=== PATIENT | male | born 1965 | race Caucasian/White ===

== ENCOUNTER 2017-11-22 11:28 | Inpatient (IN) | payer OTHER ==
[2017-11-22 14:57] LABS: INR 1.2 (0.9-1.2); PROTHROMBIN TIME 13.2 Seconds (9.8-13.1)
[2017-11-22 15:05] LABS: BASO % 0.4 % (0.0-2.0); EOS # 0.1 K/uL (0.0-0.7); HEMOGLOBIN 15.3 g/dL (12.0-18.0); LYMPH # 2.1 K/uL (1.0-4.3); LYMPH % 29.4 % (20.0-40.0); MEAN CELL VOLUME 91.5 fl (80.0-94.0); MEAN CORPUSCULAR HEMOGLOBIN 32.6 pg (27.0-31.0); MEAN CORPUSCULAR HGB CONC 35.7 g/dL (33.0-37.0); MEAN PLATELET VOLUME 9.7 fl (7.2-11.7); MONO # 0.5 K/uL (0.0-0.8); MONO % 6.9 % (0.0-10.0); NEUT # 4.4 K/uL (1.8-7.0); NEUT % 62.3 % (50.0-75.0); NRBC % 0.2 % (0.0-0.0); RBC 4.69 Mil/uL (4.40-5.90); RED CELL DISTRIBUTION WIDTH 14.7 % (11.5-14.5)
[2017-11-22 15:11] LABS: B-TYPE NATRIURETIC PEPTIDE 919 pg/ml (0-900)
[2017-11-22 15:12] LABS: BLOOD UREA NITROGEN 14 mg/dl (9-20); CALCIUM 9.4 mg/dL (8.4-10.2); GFR AFRICAN-AMERICAN > 60; GFR NON-AFRICAN AMERICAN > 60
--- NOTE | 2017-11-22 15:18 | ED PDOC ---
HPI: General Adult Time Seen by Provider: 11/22/17 13:29 Chief Complaint (Nursing): Abnormal Labs Chief Complaint (Provider): Abnormal Labs History Per: Patient History/Exam Limitations: no limitations Additional Complaint(s): 52 year old male with history of hypertension presents to the ED after he was called by his PCP earlier today telling him he has a low potassium level. Patient states he has no issues or pain at this time. He denies any nausea, vomiting, diarrhea, dizziness, syncope, chest pain, cramps, headache and fever. Patient has been compliant with blood pressure medication. He offers no other medical concerns. PCP: Darvin Mckay Past Medical History Reviewed: Historical Data, Nursing Documentation, Vital Signs Vital Signs: Last Vital Signs Temp 98.6 F 11/23/17 16:06 Pulse 123 H 11/23/17 20:08 Resp 16 11/23/17 16:06 BP 121/86 11/23/17 16:06 Pulse Ox 100 11/23/17 20:08 - Medical History PMH: HTN - Surgical History Surgical History: No Surg Hx - Family History Family History: States: Unknown Family Hx - Social History Current smoker - smoking cessation education provided: Yes (Fromangie) Alcohol: Social Drugs: Denies - Home Medications Home Medications: Ambulatory Orders Medication Instructions Recorded Telmisartan [Micardis] 80 mg PO DAILY 11/22/17 amLODIPine [Norvasc] 5 mg PO DAILY 11/22/17 - Allergies Allergies/Adverse Reactions: Allergies Allergy/AdvReac Type Severity Reaction Status Date / Time No Known Allergies Allergy Verified 11/22/17 12:10 Review of Systems ROS Statement: Except As Marked, All Systems Reviewed And Found Negative Constitutional: Negative for: Fever, Chills Cardiovascular: Negative for: Chest Pain, Palpitations Gastrointestinal: Negative for: Nausea, Vomiting, Diarrhea, Other (cramps) Neurological: Negative for: Headache, Other (syncope) Physical Exam - Reviewed Nursing Documentation Reviewed: Yes Vital Signs Reviewed: Yes - Physical Exam Appears: Positive for: Non-toxic, No Acute Distress Head Exam: Positive for: ATRAUMATIC, NORMOCEPHALIC Skin: Positive for: Normal Color, Warm, Dry Eye Exam: Positive for: Normal appearance ENT: Positive for: Normal ENT Inspection Neck: Positive for: Normal, Painless ROM, Supple Cardiovascular/Chest: Positive for: Tachycardia, Irregularly Irregular Respiratory: Positive for: Normal Breath Sounds. Negative for: Respiratory Distress Gastrointestinal/Abdominal: Positive for: Normal Exam. Negative for: Tenderness Extremity: Positive for: Normal ROM. Negative for: Deformity, Swelling Neurologic/Psych: Positive for: Alert, Oriented - Laboratory Results Result Diagrams: 11/23/17 05:10 11/23/17 14:47 - ECG ECG Rhythm: Positive for: Normal QRS, Sinus Tachycardia. Negative for: ST/T Changes Interpretation Of Abn EKG: Afib with RVR Rate: 123 O2 Sat by Pulse Oximetry: 100 (RA) Pulse Ox Interpretation: Normal - Progress Re-evaluation Time: 15:30 Condition: Re-examined, Improving,but remains with symptoms - Critical Care Total Time (In Min): 60 Medical Decision Making Medical Decision Making: Initial Impression: Hypokalemia, palpitations. Differential includes but not limited to AFib currently in ER, hypokalemia. Initial Plan: --EKG --BTN --BMP --TSH --Troponin --CBC --PTT --PT --NaCl 100 ml, DiltiaZem 100ml. 5 mg/hr IV --Cadizem 20 mg IVP -Echo cardiac -Lovenox SC reassess -Discussed case with Dr. Mckay with Dx A-fib with RVR and CHF of new onset, and hypokalemia. Request Dr. Sanchez for cardio with whom he spoke personally. Scribe Attestation: Documented by Angela Granados, acting as a scribe for Nando Duggan PA-C Provider Scribe Attestation: All medical record entries made by the Scribe were at my direction and personally dictated by me. I have reviewed the chart and agree that the record accurately reflects my personal performance of the history, physical exam, medical decision making, and the department course for this patient. I have also personally directed, reviewed, and agree with the discharge instructions and disposition. Disposition - Clinical Impression Clinical Impression: CHF (congestive heart failure), A-fib, Hypokalemia - Patient ED Disposition Is Patient to be Admitted: Yes Discussed With : Aramis Adams Doctor Will See Patient In The: ED Counseled Patient/Family Regarding: Studies Performed, Diagnosis - Disposition Disposition Time: 15:40 Condition: FAIR - Pt Status Changed To: Hospital Disposition Of: Observation - POA Present On Arrival: None
[2017-11-22] MEDS ORDERED: Potassium Chloride 20 mEq ER Tab PO ONE ×2 (15:19→16:18)
[2017-11-22] MEDS ORDERED: Potassium Chloride 20 mEq 100 ML IVPB ONE (15:30)
[2017-11-22] MEDS ORDERED: Enoxaparin 80 mg Syringe SC STA (15:49)
[2017-11-22] MEDS ORDERED: Potassium Chloride 20 mEq 100 ML ONE (16:18)
--- NOTE | 2017-11-22 16:25 | RAD ---
HISTORY: afib COMPARISON: No prior. FINDINGS: LUNGS: No active pulmonary disease. PLEURA: No significant pleural effusion identified, no pneumothorax apparent. CARDIOVASCULAR: Mild cardiomegaly. No pulmonary derangement identified. OSSEOUS STRUCTURES: No significant abnormalities. VISUALIZED UPPER ABDOMEN: Normal. OTHER FINDINGS: None. IMPRESSION: No acute pulmonary disease identified. Mild cardiomegaly is noted with pulmonary vascular pattern within normal limits.
--- NOTE | 2017-11-22 18:58 | CP.PCM.CON ---
History of Present Illness - History of Present Illness History of Present Illness: consultation for evaluation of CHF and atrial fibrillation HPI: 52-year-old male with past medical history significant for hypertension who was admitted for evaluation of severe hypokalemia after his blood was drawn and Dr. Mckay's office. 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 Review of Systems - Review of Systems Systems not reviewed;Unavailable: Acuity of Condition - Constitutional Constitutional: As Per HPI - EENT Eyes: As Per HPI Ears: As Per HPI Nose/Mouth/Throat: As Per HPI - Cardiovascular Cardiovascular: As Per HPI - Respiratory Respiratory: As Per HPI - Gastrointestinal Gastrointestinal: As Per HPI - Genitourinary Genitourinary: As Per HPI - Reproductive: Male Reproductive:Male: As Per HPI - Musculoskeletal Musculoskeletal: As Per HPI - Integumentary Integumentary: As Per HPI - Neurological Neurological: As Per HPI - Psychiatric Psychiatric: As Per HPI - Endocrine Endocrine: As Per HPI - Hematologic/Lymphatic Hematologic: As Per HPI Past Patient History - Past Social History Alcohol: Social Drugs: Denies - CARDIAC Hx Hypertension: Yes - PSYCHIATRIC Hx Substance Use: No Meds Allergies/Adverse Reactions: Allergies Allergy/AdvReac Type Severity Reaction Status Date / Time No Known Allergies Allergy Verified 11/22/17 12:10 - Medications Medications: Current Medications Aspirin (Ecotrin) 81 mg PO DAILY JOHANN Enoxaparin Sodium (Lovenox) 80 mg SC Q12 JOHANN PRN Reason: Protocol Diltiazem HCl 100 mg/ Sodium (Chloride) 100 mls @ 5 mls/hr IV .Q20H ONE; 5 MG/ HR PRN Reason: Protocol Stop: 11/23/17 10:21 Last Admin: 11/22/17 15:04 Dose: 5 mg/hr, 5 mls/hr Metoclopramide HCl (Reglan) 10 mg IVP Q6 PRN PRN Reason: Nausea/Vomiting Potassium Chloride (K-Dur 20 Meq Er Tab) 40 meq PO BID JOHANN Ramipril (Altace) 2.5 mg PO DAILY JOHANN Physical Exam - Constitutional Appears: Well - Head Exam Head Exam: ATRAUMATIC, NORMAL INSPECTION, NORMOCEPHALIC - Eye Exam Eye Exam: EOMI, Normal appearance, PERRL Pupil Exam: NORMAL ACCOMODATION, PERRL - ENT Exam ENT Exam: Mucous Membranes Moist, Normal Exam - Neck Exam Neck exam: Positive for: Normal Inspection - Respiratory Exam Respiratory Exam: Clear to Auscultation Bilateral, NORMAL BREATHING PATTERN - Cardiovascular Exam Cardiovascular Exam: Irregular Rhythm, +S1, +S2, Systolic Murmur - GI/Abdominal Exam GI & Abdominal Exam: Normal Bowel Sounds, Soft. absent: Tenderness - Extremities Exam Extremities exam: Positive for: normal inspection - Back Exam Back exam: NORMAL INSPECTION - Neurological Exam Neurological exam: Alert, CN II-XII Intact, Normal Gait, Oriented x3, Reflexes Normal - Psychiatric Exam Psychiatric exam: Normal Affect, Normal Mood - Skin Skin Exam: Dry, Intact, Normal Color, Warm Results - Vital Signs Recent Vital Signs: Last Vital Signs Temp 98.4 F 11/22/17 18:48 Pulse 97 H 11/22/17 18:48 Resp 18 11/22/17 18:48 BP 128/90 11/22/17 18:48 Pulse Ox 97 11/22/17 18:48 - Labs Result Diagrams: 11/23/17 05:10 11/23/17 14:47 Labs: Laboratory Results - last 24 hr 11/22/17 11/22/17 11/22/17 14:41 14:41 14:41 WBC 7.0 RBC 4.69 Hgb 15.3 Hct 42.9 MCV 91.5 MCH 32.6 H MCHC 35.7 RDW 14.7 H Plt Count 136 MPV 9.7 Neut % (Auto) 62.3 Lymph % (Auto) 29.4 [place] % (Auto) 6.9 Eos % (Auto) 1.0 Baso % (Auto) 0.4 Neut # (Auto) 4.4 Lymph # (Auto) 2.1 [place] # (Auto) 0.5 Eos # (Auto) 0.1 Baso # (Auto) 0.0 PT 13.2 H INR 1.2 APTT 32.0 Sodium 148 Potassium 2.5 L* Chloride 99 Carbon Dioxide 33 H Anion Gap 19 BUN 14 Creatinine 0.7 L Est GFR ( Amer) > 60 Est GFR (Non-Af Amer) > 60 Random Glucose 97 Calcium 9.4 Phosphorus Magnesium Troponin I < 0.0120 NT-Pro-B Natriuret Pep 919 H TSH 3rd Generation 1.13 11/22/17 17:00 WBC RBC Hgb Hct MCV MCH MCHC RDW Plt Count MPV Neut % (Auto) Lymph % (Auto) [place] % (Auto) Eos % (Auto) Baso % (Auto) Neut # (Auto) Lymph # (Auto) [place] # (Auto) Eos # (Auto) Baso # (Auto) PT INR APTT Sodium Potassium Chloride Carbon Dioxide Anion Gap BUN Creatinine Est GFR ( Amer) Est GFR (Non-Af Amer) Random Glucose Calcium Phosphorus 2.7 Magnesium 2.0 Troponin I NT-Pro-B Natriuret Pep TSH 3rd Generation Assessment & Plan (1) A-fib Assessment and Plan: cont IV cardizem cont lovenox add BB Status: Acute (2) CHF (congestive heart failure) Assessment and Plan: add BB and arb plan for LHCx and JEANIE/CV in am Status: Acute
--- NOTE | 2017-11-22 19:02 | CP.PCM.HP ---
History of Present Illness - History of Present Illness History of Present Illness: This is a 52 year old male with past medical history of hypertension, who reports no other past medical history, who presented to the ED after routine physical at Dr. Mckay's office after being told that his potassium was very low. He states that he is asymptomatic and feels fine. However, in the ED the patient was found to be in atrial fibrillation with rapid ventricular response at 115. He also was wound to have a potassium level of 2.5 and BNP of 919. The rest of his labwork was unremarkable. He was given Cardizem bolus and started on Cardizem drip. Echocardiogram was performed in the ED and revealed that the patient has a systolic ejection fracture of 15% with diffuse hypokinesis ( formal report from cardiology to follow). The patient is to be admitted to telemetry for new onset afib with RVR and acute systolic heart failure.Patient denies chest pain, shortness of breath, fevers, chills, nausea, vomiting, diarrhea, headache. All of the patient's questions were answered at the bedside. Present on Admission - Present on Admission Any Indicators Present on Admission: No Review of Systems - Review of Systems Review of Systems: A 12 point review of systems was conducted and found to be negative other than what was mentioned in the HPI. Past Patient History - Past Social History Alcohol: Social Drugs: Denies - CARDIAC Hx Hypertension: Yes - PSYCHIATRIC Hx Substance Use: No Meds Allergies/Adverse Reactions: Allergies Allergy/AdvReac Type Severity Reaction Status Date / Time No Known Allergies Allergy Verified 11/22/17 12:10 Physical Exam - Additional Findings Additional findings: Physical exam: Constitutional- cooperative, awake, alert Head- NCAT, PERRL Eye- PERRL, EOMI ENT- normal exam, MMM. Neck- normal inspection, supple, no JVD Respiratory- CTAB, no wheezes rales rhonchi Cardiovascular- irregular rate and rhythm, borderline tachycardia, +S1, +S2 no MRG GI/Abdominal- normal bowel sounds, soft, no mass, no hsm Skin- warm, dry Extremities Exam- normal capillary refill, normal inspection Neurological Exam- alert, awake, oriented Psych- normal mood, normal affect Results - Vital Signs Recent Vital Signs: Last Vital Signs Temp 98.4 F 11/22/17 18:48 Pulse 97 H 11/22/17 18:48 Resp 18 04/10/18 18:48 BP 128/90 11/22/17 18:48 Pulse Ox 97 11/22/17 18:48 - Labs Result Diagrams: 11/22/17 14:41 11/22/17 14:41 Labs: Laboratory Results - last 24 hr 11/22/17 11/22/17 11/22/17 14:41 14:41 14:41 WBC 7.0 RBC 4.69 Hgb 15.3 Hct 42.9 MCV 91.5 MCH 32.6 H MCHC 35.7 RDW 14.7 H Plt Count 136 MPV 9.7 Neut % (Auto) 62.3 Lymph % (Auto) 29.4 [place] % (Auto) 6.9 Eos % (Auto) 1.0 Baso % (Auto) 0.4 Neut # (Auto) 4.4 Lymph # (Auto) 2.1 [place] # (Auto) 0.5 Eos # (Auto) 0.1 Baso # (Auto) 0.0 PT 13.2 H INR 1.2 APTT 32.0 Sodium 148 Potassium 2.5 L* Chloride 99 Carbon Dioxide 33 H Anion Gap 19 BUN 14 Creatinine 0.7 L Est GFR ( Amer) > 60 Est GFR (Non-Af Amer) > 60 Random Glucose 97 Calcium 9.4 Phosphorus Magnesium Troponin I < 0.0120 NT-Pro-B Natriuret Pep 919 H TSH 3rd Generation 1.13 11/22/17 17:00 WBC RBC Hgb Hct MCV MCH MCHC RDW Plt Count MPV Neut % (Auto) Lymph % (Auto) [place] % (Auto) Eos % (Auto) Baso % (Auto) Neut # (Auto) Lymph # (Auto) [place] # (Auto) Eos # (Auto) Baso # (Auto) PT INR APTT Sodium Potassium Chloride Carbon Dioxide Anion Gap BUN Creatinine Est GFR ( Amer) Est GFR (Non-Af Amer) Random Glucose Calcium Phosphorus 2.7 Magnesium 2.0 Troponin I NT-Pro-B Natriuret Pep TSH 3rd Generation Assessment & Plan - Assessment and Plan (Free Text) Plan: ASSESSMENT/PLAN This is a 52 yo male, with past medical history of essential hypertension, who was found to have new onset atrial fibrillation with acute newly found CHF 1) New onset atrial fibrillation with RVR - Admit to telemetry - HD stable at this time on Cardizem drip - Consultation with Dr. Sanchez appreciated - ASA 81 mg po daily - Lovenox 80 mg SC q 12 hours 2) New onset CHF - Echo performed shows systolic EF of 15% - Patient appears normovolemic at this time, no need for diuresis - Cardiology consultation as above - Start Ramipril low dose - Start Coreg 12.5 mg po q 12 hours 3) Hypokalemia, uncertain etiology - 2.5 K - Repleted with IV and PO - Check Magnesium level 4) DVT prophylaxis - Lovenox sc as above Decision To Admit - Pt Status Changed To: Hospital Disposition Of: Inpatient - Admit Certification Admit to Inpatient:: After my assessment, the patient will require hospitalization for at least two midnights. This is because of the severity of symptoms shown, intensity of services needed, and/or the medical risk in this patient being treated as an outpatient. - . Bed Request Type: Telemetry Admitting Physician: Aramis Adams
[2017-11-23 06:05] LABS: HEMOGLOBIN 15.2 g/dL (12.0-18.0); MEAN CORPUSCULAR HEMOGLOBIN 32.6 pg (27.0-31.0); MEAN CORPUSCULAR HGB CONC 35.5 g/dL (33.0-37.0); RBC 4.65 Mil/uL (4.40-5.90); RED CELL DISTRIBUTION WIDTH 14.8 % (11.5-14.5); WHITE BLOOD COUNT 8.8 K/uL (4.8-10.8)
[2017-11-23 06:14] LABS: BLOOD UREA NITROGEN 14 mg/dl (9-20); CALCIUM 9.4 mg/dL (8.4-10.2); GFR AFRICAN-AMERICAN > 60; GFR NON-AFRICAN AMERICAN > 60; HDL CHOLESTEROL 39 MG/DL (30-70)
[2017-11-23 06:25] LABS: LDL CHOLESTEROL 90 mg/dL (0-129)
--- NOTE | 2017-11-23 08:41 | CARD ---
APPROVED REPORT EXAM: Two-dimensional and M-mode echocardiogram with Doppler and color Doppler. Other Information Quality : ExcellentRhythm : Atrial Fibrillation INDICATION Atrial Fibrillation 2D DIMENSIONS IVSd1.21 (0.7-1.1cm)LVDd5.19 (3.9-5.9cm) LVOT Diameter2.28 (1.8-2.4cm)PWd0.98 (0.7-1.1cm) IVSs1.19 (0.8-1.2cm)LVDs5.28 (2.5-4.0cm) FS (%) 1.9 %PWs1.03 (0.8-1.2cm) M-Mode DIMENSIONS Left Atrium (MM)5.06 (2.5-4.0cm)IVSd0.97 (0.7-1.1cm) Aortic Root3.35 (2.2-3.7cm)LVDd6.41 (4.0-5.6cm) Aortic Cusp Exc.2.18 (1.5-2.0cm)PWd1.12 (0.7-1.1cm) IVSs1.71 cmFS (%) 38 % LVDs3.97 (2.0-3.8cm)PWs1.65 cm Mitral Valve E/A ratio0.0 TDI E/Lateral E'0.0E/Medial E'0.0 Tricuspid Valve TR Peak [id number] [id number] Peak Gr.9mmHg [id number] LEFT VENTRICLE The left ventricle is normal size. There is normal left ventricular wall thickness. Left ventricle systolic function is moderately impaired. The Ejection Fraction is 30-35%. There is global moderate hypokinesis of the left ventricle. Pt has A fib. RIGHT VENTRICLE The right ventricle is normal size. There is normal right ventricular wall thickness. The right ventricular systolic function is normal. ATRIA The left atrium is mildly dilated. The right atrium size is normal. AORTIC VALVE The aortic valve is normal in structure. No aortic regurgitation is present. There is no aortic valvular stenosis. MITRAL VALVE The mitral valve is normal in structure. There is no evidence of mitral valve prolapse. There is no mitral valve stenosis. Mitral regurgitation is mild to moderate. TRICUSPID VALVE The tricuspid valve is normal in structure. There is mild tricuspid regurgitation. Right ventricular systolic pressure is estimated at 26 mmHg. There is no pulmonary hypertension. PULMONIC VALVE The pulmonary valve is normal in structure. There is no pulmonic valvular regurgitation. GREAT VESSELS The aortic root is normal in size. The IVC is normal in size and collapses >50% with inspiration. PERICARDIAL EFFUSION The pericardium appears normal. <Conclusion> The left ventricle is normal size. There is normal left ventricular wall thickness. There is global moderate hypokinesis of the left ventricle. Left ventricle systolic function is moderately impaired. The Ejection Fraction is 30-35%. The left atrium is mildly dilated. Mitral regurgitation is mild to moderate.
--- NOTE | 2017-11-23 09:21 | CARD ---
APPROVED REPORT EKG Measurement Heart [id number] <Conclusion> Atrial fibrillation with rapid ventricular response Nonspecific ST and T wave abnormality Abnormal ECG
[2017-11-23] MEDS: Potassium Chloride 20 mEq ER Tab PO SCH ×2 (09:41→16:26)
[2017-11-23] MEDS: Enoxaparin 80 mg Syringe SC SCH ×2 (09:41→21:25)
[2017-11-23] MEDS: Potassium Chloride 20 mEq 100 ML IVPB SCH ×2 (10:57→13:09)
[2017-11-23] MEDS ORDERED: Potassium Chloride 20 mEq 100 ML IVPB ONE (11:30)
[2017-11-23] MEDS: Metoprolol Succinate 100 mg XL Tab PO SCH (12:14)
--- NOTE | 2017-11-23 14:27 | CP.PCM.PN ---
Subjective - Date & Time of Evaluation Date of Evaluation: 11/23/17 Time of Evaluation: 14:00 - Subjective Subjective: Patient seen and examined at bedside. Relates that he has had no acute events overnight. He is for cardioversion in the morning as per Dr. Sanchez. Still in afib. Objective - Vital Signs/Intake and Output Vital Signs (last 24 hours): Temp Pulse Resp BP Pulse Ox 97.7 F 85 20 118/80 99 11/23/17 08:00 11/23/17 09:41 11/23/17 08:00 11/23/17 09:43 11/23/17 08:00 - Medications Medications: Current Medications Aspirin (Ecotrin) 81 mg PO DAILY [facility] Last Admin: 11/23/17 09:41 Dose: 81 mg Enoxaparin Sodium (Lovenox) 80 mg SC Q12 JOHANN PRN Reason: Protocol Last Admin: 11/23/17 09:41 Dose: 80 mg Potassium Chloride (Potassium Chloride 20 Meq/100 Ml) 100 mls @ 50 mls/hr IVPB ONCE ONE Stop: 11/23/17 13:29 Losartan Potassium (Cozaar) 50 mg PO DAILY [facility] Metoclopramide HCl (Reglan) 10 mg IVP Q6 PRN PRN Reason: Nausea/Vomiting Metoprolol Succinate (Toprol Xl) 100 mg PO DAILY [facility] Potassium Chloride (K-Dur 20 Meq Er Tab) 40 meq PO BID [facility] Last Admin: 11/23/17 09:41 Dose: 40 meq - Labs Labs: 11/23/17 05:10 11/23/17 05:10 PT 13.2 Seconds (9.8-13.1) H 11/22/17 14:41 INR 1.2 (0.9-1.2) 11/22/17 14:41 APTT 32.0 Seconds (25.6-37.1) 11/22/17 14:41 - Additional Findings Additional findings: Physical exam: Constitutional- cooperative, awake, alert Head- NCAT, PERRL Eye- PERRL, EOMI ENT- normal exam, MMM. Neck- normal inspection, supple, no JVD Respiratory- CTAB, no wheezes rales rhonchi Cardiovascular- irregular rate and rhythm, borderline tachycardia, +S1, +S2 no MRG GI/Abdominal- normal bowel sounds, soft, no mass, no hsm Skin- warm, dry Extremities Exam- normal capillary refill, normal inspection Neurological Exam- alert, awake, oriented Psych- normal mood, normal affect Assessment and Plan - Assessment and Plan (Free Text) Plan: ASSESSMENT/PLAN This is a 52 yo male, with past medical history of essential hypertension, who was found to have new onset atrial fibrillation with acute newly found CHF 1) New onset atrial fibrillation with RVR, now controlled - continue telemetry - Cardizem drip discontinued - Consultation with Dr. Sanchez appreciated- as per recommendations we will start Toprol XL 100 mg po daily and Losartan 50 mg po daily - For Cardioversion in AM - ASA 81 mg po daily - Lovenox 80 mg SC q 12 hours 2) New onset CHF - Echo performed shows systolic EF of 30-35% as per final report (not 15% as in H&P) - Patient appears normovolemic at this time, no need for diuresis - Cardiology consultation as above - Losartan and Toprol as recommended by cardiology - Lipid profile shows elevated triglycerides 188, however no significant elevation of cholesterol/LDL 3) Hypokalemia, uncertain etiology - 2.5-> 2.8 today - Nephrology consultation with Dr. Escobar - Repleting with IV and PO - Magnesium and phos are within normal limits 4) DVT prophylaxis - Lovenox sc as above
[2017-11-23 15:08] LABS: BLOOD UREA NITROGEN 14 mg/dl (9-20); CALCIUM 9.5 mg/dL (8.4-10.2); GFR AFRICAN-AMERICAN > 60; GFR NON-AFRICAN AMERICAN > 60
[2017-11-23 21:12] LABS: URINE BACTERIA RARE (<OCC); URINE BILIRUBIN NEGATIVE (NEGATIVE); URINE BLOOD NEGATIVE (NEGATIVE); URINE CLARITY SLIGHTY-CLOUDY (Clear); URINE COLOR AMBER (YELLOW); URINE GLUCOSE (UA) NEG (Normal); URINE HYALINE CAST 0-2 /hpf (0-2); URINE LEUKOCYTE ESTERASE NEG Leu/uL (Negative); URINE PROTEIN 30 mg/dL (NEGATIVE)
--- NOTE | 2017-11-23 21:52 | CP.PCM.PN ---
Subjective - Date & Time of Evaluation Date of Evaluation: 11/23/17 Time of Evaluation: 21:50 - Subjective Subjective: HR controlled no evidence of failure on exam echo reviewed - Global LV systolic dysfunction Objective - Vital Signs/Intake and Output Vital Signs (last 24 hours): Temp Pulse Resp BP Pulse Ox 98.4 F 76 16 130/88 99 11/23/17 20:17 11/23/17 20:17 11/23/17 20:17 11/23/17 20:17 11/23/17 20:17 - Medications Medications: Current Medications Aspirin (Ecotrin) 81 mg PO DAILY [facility] Last Admin: 11/23/17 09:41 Dose: 81 mg Enoxaparin Sodium (Lovenox) 80 mg SC Q12 [facility] [place] PRN Reason: Protocol Last Admin: 11/23/17 21:25 Dose: 80 mg Losartan Potassium (Cozaar) 50 mg PO DAILY [facility] [place] Metoclopramide HCl (Reglan) 10 mg PO Q6 PRN PRN Reason: Nausea/Vomiting Metoprolol Succinate (Toprol Xl) 100 mg PO DAILY [facility] [place] Last Admin: 11/23/17 12:14 Dose: 100 mg Potassium Chloride (K-Dur 20 Meq Er Tab) 40 meq PO BID [facility] [place] Last Admin: 11/23/17 16:26 Dose: 40 meq - Labs Labs: 11/23/17 05:10 11/23/17 14:47 PT 13.2 Seconds (9.8-13.1) H 11/22/17 14:41 INR 1.2 (0.9-1.2) 11/22/17 14:41 APTT 32.0 Seconds (25.6-37.1) 11/22/17 14:41 - Constitutional Appears: Well - Head Exam Head Exam: ATRAUMATIC, NORMAL INSPECTION, NORMOCEPHALIC - Eye Exam Eye Exam: EOMI, Normal appearance, PERRL Pupil Exam: NORMAL ACCOMODATION, PERRL - ENT Exam ENT Exam: Mucous Membranes Moist, Normal Exam - Neck Exam Neck Exam: Full ROM, Normal Inspection. absent: Lymphadenopathy - Respiratory Exam Respiratory Exam: Clear to Ausculation Bilateral, NORMAL BREATHING PATTERN - Cardiovascular Exam Cardiovascular Exam: Irregular Rhythm, +S1, +S2, Murmur - GI/Abdominal Exam GI & Abdominal Exam: Soft, Normal Bowel Sounds. absent: Tenderness - Extremities Exam Extremities Exam: Full ROM, Normal Capillary Refill, Normal Inspection. absent : Joint Swelling, Pedal Edema - Back Exam Back Exam: NORMAL INSPECTION - Neurological Exam Neurological Exam: Alert, Awake, CN II-XII Intact, Normal Gait, Oriented x3 - Psychiatric Exam Psychiatric exam: Normal Affect, Normal Mood - Skin Skin Exam: Dry, Intact, Normal Color, Warm Assessment and Plan (1) A-fib Assessment & Plan: chg to toprol xl 100mg po daily cont lovenox plan for RUSH/CV in am npo p mn Status: Acute (2) CHF (congestive heart failure) Assessment & Plan: add bb and arb rush/cv in am Status: Acute
--- NOTE | 2017-11-24 06:38 | CP.PCM.CON ---
History of Present Illness - History of Present Illness History of Present Illness: 52 yo M w/ pmh of htn, previous hypokalemia, sent by pmd to ED due to hypokalemia; found to be in Afib, nephrology being consulted for hypokalemia; Patient reports being in his usual state of health lately; denies any palpitations, chest pain, shortness of breath or leg swelling; no recent leg cramps; is on amlodipine and telmisartan for htn; previously was on PO potassium supplementation but taken off of it many months ago; also reports being on aldactone at one point; Review of Systems - Constitutional Constitutional: absent: Anorexia - EENT Eyes: absent: Change in Vision - Cardiovascular Cardiovascular: As Per HPI - Respiratory Respiratory: absent: Dyspnea - Gastrointestinal Gastrointestinal: absent: Diarrhea, Vomiting - Genitourinary Genitourinary: absent: Difficulty Urinating, Dysuria, Nocturia, Urinary Frequency - Musculoskeletal Musculoskeletal: absent: Muscle Cramps - Neurological Neurological: absent: Dizziness, Headaches Past Patient History - Past Medical History & Family History Past Medical History?: Yes Pertinent Family History: Mother - htn - Past Social History Smoking Status: Former Smoker Alcohol: Social Drugs: Denies - CARDIAC Hx Hypertension: Yes - PULMONARY Hx Respiratory Disorders: No - NEUROLOGICAL Hx Neurological Disorder: No - HEENT Hx HEENT Problems: No - RENAL Hx Chronic Kidney Disease: No - ENDOCRINE/METABOLIC Hx Endocrine Disorders: No - HEMATOLOGICAL/ONCOLOGICAL Hx Blood Disorders: No Hx AIDS: No Hx Human Immunodeficiency Virus (HIV): No - INTEGUMENTARY Hx Dermatological Problems: No - MUSCULOSKELETAL/RHEUMATOLOGICAL Hx Musculoskeletal Disorders: No Hx Falls: No - GASTROINTESTINAL Hx Gastrointestinal Disorders: No - GENITOURINARY/GYNECOLOGICAL Hx Genitourinary Disorders: No - PSYCHIATRIC Hx Substance Use: No - SURGICAL HISTORY Hx Surgeries: No - ANESTHESIA Hx Anesthesia: No Hx Anesthesia Reactions: No Meds Allergies/Adverse Reactions: Allergies Allergy/AdvReac Type Severity Reaction Status Date / Time No Known Allergies Allergy Verified 11/22/17 12:10 - Medications Medications: Current Medications Aspirin (Ecotrin) 81 mg PO DAILY [facility] Last Admin: 11/23/17 09:41 Dose: 81 mg Enoxaparin Sodium (Lovenox) 80 mg SC Q12 [facility] PRN Reason: Protocol Last Admin: 11/23/17 21:25 Dose: 80 mg Losartan Potassium (Cozaar) 50 mg PO DAILY [facility] Metoclopramide HCl (Reglan) 10 mg PO Q6 PRN PRN Reason: Nausea/Vomiting Metoprolol Succinate (Toprol Xl) 100 mg PO DAILY [facility] Last Admin: 11/23/17 12:14 Dose: 100 mg Potassium Chloride (K-Dur 20 Meq Er Tab) 40 meq PO BID [facility] Last Admin: 11/23/17 16:26 Dose: 40 meq Physical Exam - Constitutional Appears: Well, No Acute Distress - Eye Exam Eye Exam: absent: Scleral icterus - ENT Exam ENT Exam: Mucous Membranes Moist - Respiratory Exam Respiratory Exam: Clear to Auscultation Bilateral. absent: Rales, Rhonchi, Wheezes, Respiratory Distress - Cardiovascular Exam Cardiovascular Exam: RRR, +S1, +S2. absent: Gallop - GI/Abdominal Exam GI & Abdominal Exam: Soft. absent: Distended - Extremities Exam Extremities exam: Negative for: pedal edema - Neurological Exam Neurological exam: Alert, Oriented x3 - Psychiatric Exam Psychiatric exam: Normal Affect, Normal Mood Results - Vital Signs Recent Vital Signs: Last Vital Signs Temp 98.9 F 11/24/17 05:34 Pulse 96 H 11/24/17 05:34 Resp 18 11/24/17 05:34 BP 113/89 11/24/17 05:34 Pulse Ox 99 11/24/17 05:34 - Labs Result Diagrams: 11/23/17 05:10 11/23/17 14:47 Labs: Laboratory Results - last 24 hr 11/23/17 11/23/17 11/23/17 05:10 11:28 14:47 Sodium 148 Potassium 3.5 L Chloride 104 Carbon Dioxide 29 Anion Gap 19 BUN 14 Creatinine 0.7 L Est GFR ( Amer) > 60 Est GFR (Non-Af Amer) > 60 Random Glucose 84 Hemoglobin A1c 4.4 Calcium 9.5 Troponin I < 0.0120 Urine Color Urine Clarity Urine pH Ur Specific [place] Urine Protein Urine Glucose (UA) Urine Ketones Urine Blood Urine Nitrate Urine Bilirubin Urine Urobilinogen Ur Leukocyte Esterase Urine RBC (Auto) Urine Microscopic WBC Urine Bacteria Hyaline Casts Urine Osmolality Ur Random Potassium 11/23/17 11/23/17 11/23/17 17:25 21:00 21:00 Sodium Potassium Chloride Carbon Dioxide Anion Gap BUN Creatinine Est GFR ( Amer) Est GFR (Non-Af Amer) Random Glucose Hemoglobin A1c Calcium Troponin I Urine Color Rosalinda Urine Clarity Slighty-cloudy Urine pH 7.0 Ur Specific [place] 1.023 Urine Protein 30 Urine Glucose (UA) Neg Urine Ketones Negative Urine Blood Negative Urine Nitrate Negative Urine Bilirubin Negative Urine Urobilinogen 4.0 Ur Leukocyte Esterase Neg Urine RBC (Auto) 3 Urine Microscopic WBC 2 Urine Bacteria Rare Hyaline Casts 0-2 Urine Osmolality 692 Ur Random Potassium 158.6 - Imaging and Cardiology Chest x-ray Status: Image reviewed by me Additional comment: No pulm venous congestion Assessment & Plan (1) Hypokalemia Assessment and Plan: Apparently a chronic issue controlled with PO supplementation previously; etiology unclear; hyperaldosteronism a possibility as patient has metabolic alkalosis (although BP is well controlled without alvina recptor girish); renal tubular defect such as seen with bartter/gitelman syndrome also a possibilty but would expect lower BP; -checking urine studies -plasma alvina and renin levels -continue aggressive K supplementation; should aim for K > 4.0 in light of CHF and afib status; Status: Acute (2) HTN (hypertension) Assessment and Plan: Well controlled; regimen changed to toprol xl and losartan; will monitor; Status: Acute (3) A-fib Assessment and Plan: Rate currently controlled; see above; Status: Acute (4) CHF (congestive heart failure) Assessment and Plan: Global hypokinesis, apparently new finding; appears euvolemic on exam; see above regarding K supplementation; if diuretics needed, mineralocorticoid receptor antagonists (eg. aldactone or eplerenone) would be drug of choice; Status: Acute
[2017-11-24 07:34] LABS: BLOOD UREA NITROGEN 16 mg/dl (9-20); GFR AFRICAN-AMERICAN > 60; GFR NON-AFRICAN AMERICAN > 60
[2017-11-24] MEDS: Metoprolol Succinate 100 mg XL Tab PO SCH (09:03)
[2017-11-24] MEDS: Potassium Chloride 20 mEq ER Tab PO SCH ×2 (09:03→16:47)
[2017-11-24] MEDS: Enoxaparin 80 mg Syringe SC SCH (09:05)
[2017-11-24] MEDS: Potassium Chloride 20 mEq 100 ML IVPB SCH ×2 (09:06→10:28)
[2017-11-24] MEDS ORDERED: Potassium Chloride 20 mEq ER Tab PO ONE (10:46)
[2017-11-24] MEDS ORDERED: Sodium Chloride 0.9% 1,000 ML IV SCH (11:00)
--- NOTE | 2017-11-24 14:15 | CP.PCM.PN ---
Subjective - Date & Time of Evaluation Date of Evaluation: 11/24/17 Time of Evaluation: 14:12 - Subjective Subjective: feeling fine in afib with HR of 90's Objective - Vital Signs/Intake and Output Vital Signs (last 24 hours): Temp Pulse Resp BP Pulse Ox 98.3 F 86 20 120/86 99 11/24/17 07:54 11/24/17 09:04 11/24/17 07:54 11/24/17 09:04 11/24/17 07:54 - Medications Medications: Current Medications Aspirin (Ecotrin) 81 mg PO DAILY [facility] Last Admin: 11/24/17 09:05 Dose: 81 mg Enoxaparin Sodium (Lovenox) 80 mg SC Q12 [facility] PRN Reason: Protocol Last Admin: 11/24/17 09:05 Dose: 80 mg Sodium Chloride (Sodium Chloride 0.9%) 1,000 mls @ 75 mls/hr IV .[id number] [facility] Stop: 11/25/17 10:50 Last Admin: 11/24/17 11:35 Dose: Not Given Losartan Potassium (Cozaar) 50 mg PO DAILY [facility] Last Admin: 11/24/17 09:04 Dose: 50 mg Metoclopramide HCl (Reglan) 10 mg PO Q6 PRN PRN Reason: Nausea/Vomiting Metoprolol Succinate (Toprol Xl) 100 mg PO DAILY [facility] Last Admin: 11/24/17 09:03 Dose: 100 mg Potassium Chloride (K-Dur 20 Meq Er Tab) 40 meq PO BID [facility] Last Admin: 11/24/17 09:03 Dose: 40 meq - Labs Labs: 11/23/17 05:10 11/24/17 05:30 PT 13.2 Seconds (9.8-13.1) H 11/22/17 14:41 INR 1.2 (0.9-1.2) 11/22/17 14:41 APTT 32.0 Seconds (25.6-37.1) 11/22/17 14:41 - Constitutional Appears: Well - Head Exam Head Exam: ATRAUMATIC, NORMAL INSPECTION, NORMOCEPHALIC - Eye Exam Eye Exam: EOMI, Normal appearance, PERRL Pupil Exam: NORMAL ACCOMODATION, PERRL - ENT Exam ENT Exam: Mucous Membranes Moist, Normal Exam - Neck Exam Neck Exam: Full ROM, Normal Inspection. absent: Lymphadenopathy - Respiratory Exam Respiratory Exam: Clear to Ausculation Bilateral, NORMAL BREATHING PATTERN - Cardiovascular Exam Cardiovascular Exam: Irregular Rhythm, +S1, +S2, Murmur - GI/Abdominal Exam GI & Abdominal Exam: Soft, Normal Bowel Sounds. absent: Tenderness - Extremities Exam Extremities Exam: Full ROM, Normal Capillary Refill, Normal Inspection. absent : Joint Swelling, Pedal Edema - Back Exam Back Exam: NORMAL INSPECTION - Neurological Exam Neurological Exam: Alert, Awake, CN II-XII Intact, Oriented x3 - Psychiatric Exam Psychiatric exam: Normal Affect, Normal Mood - Skin Skin Exam: Dry, Intact, Normal Color, Warm Assessment and Plan (1) A-fib Assessment & Plan: plan for JEANIE/CV today at cont lovenox will transition to OAC ( eliquis mg po bid this pm ) cont toprol xl Status: Acute (2) CHF (congestive heart failure) Assessment & Plan: cont toprol xl , losartan add aldactone 12.5mg po daily Status: Acute
--- NOTE | 2017-11-24 16:02 | CP.PCM.PN ---
Subjective - Date & Time of Evaluation Date of Evaluation: 11/24/17 Time of Evaluation: 10:00 - Subjective Subjective: Patient was seen and examined at bedside. The patient has no new complaints. Was transferred to [facility] for cardioversion. Objective - Vital Signs/Intake and Output Vital Signs (last 24 hours): Temp Pulse Resp BP Pulse Ox 98.3 F 86 20 120/86 99 11/24/17 07:54 11/24/17 09:04 11/24/17 07:54 11/24/17 09:04 11/24/17 07:54 - Medications Medications: Current Medications Apixaban (Eliquis) 5 mg PO Q12H [facility] PRN Reason: Protocol Aspirin (Ecotrin) 81 mg PO DAILY [facility] Last Admin: 11/24/17 09:05 Dose: 81 mg Enoxaparin Sodium (Lovenox) 80 mg SC Q12 [facility] PRN Reason: Protocol Last Admin: 11/24/17 09:05 Dose: 80 mg Sodium Chloride (Sodium Chloride 0.9%) 1,000 mls @ 75 mls/hr IV .[id number] [facility] Stop: 11/25/17 10:50 Last Admin: 11/24/17 11:35 Dose: Not Given Losartan Potassium (Cozaar) 50 mg PO DAILY [facility] Last Admin: 11/24/17 09:04 Dose: 50 mg Metoclopramide HCl (Reglan) 10 mg PO Q6 PRN PRN Reason: Nausea/Vomiting Metoprolol Succinate (Toprol Xl) 100 mg PO DAILY [facility] Last Admin: 11/24/17 09:03 Dose: 100 mg Potassium Chloride (K-Dur 20 Meq Er Tab) 40 meq PO BID [facility] Last Admin: 11/24/17 09:03 Dose: 40 meq - Labs Labs: 11/23/17 05:10 11/24/17 05:30 PT 13.2 Seconds (9.8-13.1) H 11/22/17 14:41 INR 1.2 (0.9-1.2) 11/22/17 14:41 APTT 32.0 Seconds (25.6-37.1) 11/22/17 14:41 - Additional Findings Additional findings: Physical exam: Constitutional- cooperative, awake, alert Head- NCAT, PERRL Eye- PERRL, EOMI ENT- normal exam, MMM. Neck- normal inspection, supple, no JVD Respiratory- CTAB, no wheezes rales rhonchi Cardiovascular- irregular rate and rhythm, borderline tachycardia, +S1, +S2 no MRG GI/Abdominal- normal bowel sounds, soft, no mass, no hsm Skin- warm, dry Extremities Exam- normal capillary refill, normal inspection Neurological Exam- alert, awake, oriented Psych- normal mood, normal affect Assessment and Plan - Assessment and Plan (Free Text) Plan: ASSESSMENT/PLAN This is a 52 yo male, with past medical history of essential hypertension, who was found to have new onset atrial fibrillation with acute newly found CHF 1) New onset atrial fibrillation with RVR, now controlled - continue telemetry - Dr. Sanchez on consultation - Cardizem drip discontinued - Toprol XL 100 mg po daily and Losartan 50 mg po daily - For Cardioversion in AM - ASA 81 mg po daily - Changing from Lovenox to Eliquis tonight as per Dr. Sanchez 2) New onset systolic CHF - Echo performed shows systolic EF of 30-35% - Patient appears normovolemic at this time, no need for diuresis - Cardiology consultation as above - Losartan and Toprol as recommended by cardiology - Lipid profile shows elevated triglycerides 188, however no significant elevation of cholesterol/LDL 3) Persistent Hypokalemia with borderline hypernatremia, uncertain etiology, r/ o Conn's syndrome, r/o Barter syndrome, r/o Gitelman syndrome, r/o renal tubular acidosis - 2.5-> 2.8->2.5 today despite IV and PO repletion. - Nephrology consultation with Dr. Escobar - Repleting with IV and PO - Magnesium and phos are within normal limits - Checking aldosterone, renin, urine lytes, urine creatinine 4) DVT prophylaxis - Eliquis
--- NOTE | 2017-11-24 19:17 | CP.PCM.PN ---
Subjective - Date & Time of Evaluation Date of Evaluation: 11/24/17 Time of Evaluation: 14:00 - Subjective Subjective: Patient unable to be seen as he was transferred to [facility] for cardioversion, expected to be sent back to [facility]; Objective - Vital Signs/Intake and Output Vital Signs (last 24 hours): Temp Pulse Resp BP Pulse Ox 98.3 F 86 20 120/86 99 11/24/17 07:54 11/24/17 09:04 11/24/17 07:54 11/24/17 09:04 11/24/17 07:54 - Medications Medications: Current Medications Apixaban (Eliquis) 5 mg PO Q12H [facility] PRN Reason: Protocol Last Admin: 11/24/17 16:47 Dose: Not Given Aspirin (Ecotrin) 81 mg PO DAILY [facility] Last Admin: 11/24/17 09:05 Dose: 81 mg Sodium Chloride (Sodium Chloride 0.9%) 1,000 mls @ 75 mls/hr IV .[id number] [facility] Stop: 11/25/17 10:50 Last Admin: 11/24/17 11:35 Dose: Not Given Losartan Potassium (Cozaar) 50 mg PO DAILY [facility] Last Admin: 11/24/17 09:04 Dose: 50 mg Metoclopramide HCl (Reglan) 10 mg PO Q6 PRN PRN Reason: Nausea/Vomiting Metoprolol Succinate (Toprol Xl) 100 mg PO DAILY [facility] Last Admin: 11/24/17 09:03 Dose: 100 mg Potassium Chloride (K-Dur 20 Meq Er Tab) 40 meq PO BID [facility] Last Admin: 11/24/17 16:47 Dose: Not Given - Labs Labs: 11/23/17 05:10 11/24/17 05:30 PT 13.2 Seconds (9.8-13.1) H 11/22/17 14:41 INR 1.2 (0.9-1.2) 11/22/17 14:41 APTT 32.0 Seconds (25.6-37.1) 11/22/17 14:41 Assessment and Plan (1) Hypokalemia Assessment & Plan: Still very persistent; urine studies consistent with renal K wasting; tubular defect such as Bartter's/Gitelman's syndrome suspected; -will continue to supplement K aggressively via IV and PO routes; -will need to be on med that blocks distal tubular K secretion (aldactone or triamterene) watermaster; Status: Acute (2) HTN (hypertension) Assessment & Plan: BP controlled on toprol and losartan, continue same; Status: Acute (3) A-fib Assessment & Plan: Going for cardioversion, need to keep K > 4.0; Status: Acute (4) CHF (congestive heart failure) Status: Acute
[2017-11-24 22:21] LABS: BLOOD UREA NITROGEN 19 mg/dl (9-20); CALCIUM 9.2 mg/dL (8.4-10.2); GFR AFRICAN-AMERICAN > 60; GFR NON-AFRICAN AMERICAN > 60
[2017-11-25] MEDS ORDERED: Potassium Chloride 20 mEq ER Tab PO STA (02:09)
[2017-11-25 06:11] LABS: HEMOGLOBIN 15.4 g/dL (12.0-18.0); MEAN CORPUSCULAR HEMOGLOBIN 32.1 pg (27.0-31.0); MEAN CORPUSCULAR HGB CONC 34.5 g/dL (33.0-37.0); RBC 4.81 Mil/uL (4.40-5.90); RED CELL DISTRIBUTION WIDTH 14.8 % (11.5-14.5); WHITE BLOOD COUNT 10.9 K/uL (4.8-10.8)
[2017-11-25 06:43] LABS: BLOOD UREA NITROGEN 15 mg/dl (9-20); CALCIUM 8.8 mg/dL (8.4-10.2); GFR AFRICAN-AMERICAN > 60; GFR NON-AFRICAN AMERICAN > 60
[2017-11-25] MEDS ORDERED: Sodium Chloride 0.9% 1,000 ML IV SCH (08:31)
[2017-11-25 08:44] VITALS: RESP 20
[2017-11-25] MEDS: Metoprolol Succinate 100 mg XL Tab PO SCH (09:20)
[2017-11-25] MEDS: Potassium Chloride 20 mEq ER Tab PO SCH ×3 (09:22→16:21)
[2017-11-25] MEDS: Potassium Chloride 20 mEq 100 ML IVPB SCH ×2 (09:27→12:22)
--- NOTE | 2017-11-25 15:03 | CP.PCM.DIS ---
Provider - Provider Date of Admission: 11/24/17 19:44 Attending physician: Santos Adams DO Primary care physician: Dr Aramis Nicholson Consults: cardiology nephrology consult Time Spent in preparation of Discharge (in minutes): 15 Hospital Course - Lab Results Lab Results: Most Recent Lab Values WBC 10.9 K/uL (4.8-10.8) H 11/25/17 05:56 RBC 4.81 Mil/uL (4.40-5.90) 11/25/17 05:56 Hgb 15.4 g/dL (12.0-18.0) 11/25/17 05:56 Hct 44.7 % (35.0-51.0) 11/25/17 05:56 MCV 93.0 fl (80.0-94.0) 11/25/17 05:56 MCH 32.1 pg (27.0-31.0) H 11/25/17 05:56 MCHC 34.5 g/dL (33.0-37.0) 11/25/17 05:56 RDW 14.8 % (11.5-14.5) H 11/25/17 05:56 Plt Count 122 K/uL (130-400) L 11/25/17 05:56 MPV 9.7 fl (7.2-11.7) 11/22/17 14:41 Neut % (Auto) 62.3 % (50.0-75.0) 11/22/17 14:41 Lymph % (Auto) 29.4 % (20.0-40.0) 11/22/17 14:41 Esmeralda % (Auto) 6.9 % (0.0-10.0) 11/22/17 14:41 Eos % (Auto) 1.0 % (0.0-4.0) 11/22/17 14:41 Baso % (Auto) 0.4 % (0.0-2.0) 11/22/17 14:41 Neut # (Auto) 4.4 K/uL (1.8-7.0) 11/22/17 14:41 Lymph # (Auto) 2.1 K/uL (1.0-4.3) 11/22/17 14:41 Esmeralda # (Auto) 0.5 K/uL (0.0-0.8) 11/22/17 14:41 Eos # (Auto) 0.1 K/uL (0.0-0.7) 11/22/17 14:41 Baso # (Auto) 0.0 K/uL (0.0-0.2) 11/22/17 14:41 PT 13.2 Seconds (9.8-13.1) H 11/22/17 14:41 INR 1.2 (0.9-1.2) 11/22/17 14:41 APTT 32.0 Seconds (25.6-37.1) 11/22/17 14:41 Sodium 140 mmol/l (132-148) 11/25/17 05:56 Potassium 2.8 MMOL/L (3.6-5.0) L 11/25/17 05:56 Chloride 100 mmol/L (98-107) 11/25/17 05:56 Carbon Dioxide 28 mmol/L (22-30) 11/25/17 05:56 Anion Gap 15 (10-20) 11/25/17 05:56 BUN 15 mg/dl (9-20) 11/25/17 05:56 Creatinine 0.8 mg/dl (0.8-1.5) 11/25/17 05:56 Est GFR ( Amer) > 60 11/25/17 05:56 Est GFR (Non-Af Amer) > 60 11/25/17 05:56 Random Glucose 91 mg/dL (75-110) 11/25/17 05:56 Hemoglobin A1c 4.4 % (4.2-6.5) 11/23/17 05:10 Calcium 8.8 mg/dL (8.4-10.2) 11/25/17 05:56 Phosphorus 2.7 mg/dl (2.5-4.5) 11/22/17 17:00 Magnesium 1.6 MG/DL (1.6-2.3) 11/25/17 05:56 Troponin I < 0.0120 ng/mL (0.00-0.120) 11/23/17 11:28 NT-Pro-B Natriuret Pep 919 pg/ml (0-900) H 11/22/17 14:41 Triglycerides 188 mg/DL (0-149) H 11/23/17 05:10 Cholesterol 157 mg/dL (0-199) 11/23/17 05:10 LDL Cholesterol Direct 90 mg/dL (0-129) 11/23/17 05:10 HDL Cholesterol 39 MG/DL (30-70) 11/23/17 05:10 Renin TNP 11/24/17 07:48 Aldosterone TNP 11/24/17 07:48 Aldosterone/Renin Ratio TNP 11/24/17 07:48 TSH 3rd Generation 1.13 mIU/ML (0.46-4.68) 11/22/17 14:41 Urine Color Rosalinda (YELLOW) 11/23/17 21:00 Urine Clarity Slighty-cloudy (Clear) 11/23/17 21:00 Urine pH 7.0 (5.0-8.0) 11/23/17 21:00 Ur Specific [place] 1.023 (1.003-1.030) 11/23/17 21:00 Urine Protein 30 mg/dL (NEGATIVE) 11/23/17 21:00 Urine Glucose (UA) Neg mg/dL (Normal) 11/23/17 21:00 Urine Ketones Negative mg/dL (NEGATIVE) 11/23/17 21:00 Urine Blood Negative (NEGATIVE) 11/23/17 21:00 Urine Nitrate Negative (NEGATIVE) 11/23/17 21:00 Urine Bilirubin Negative (NEGATIVE) 11/23/17 21:00 Urine Urobilinogen 4.0 mg/dL (0.2-1.0) 11/23/17 21:00 Ur Leukocyte Esterase Neg Virgie/uL (Negative) 11/23/17 21:00 Urine RBC (Auto) 3 /hpf (0-3) 11/23/17 21:00 Urine Microscopic WBC 2 /hpf (0-5) 11/23/17 21:00 Urine Bacteria Rare (<OCC) 11/23/17 21:00 Hyaline Casts 0-2 /hpf (0-2) 11/23/17 21:00 Urine Osmolality 692 mosm/kg (300-1000) 11/23/17 21:00 Ur Random Creatinine 85.0 mg/dL 11/24/17 10:52 Ur Random Sodium 118 mmol/L 11/24/17 10:52 Ur Random Potassium 75.6 mmol/L 11/24/17 10:52 Urine Chloride 50 mmol/L (32-290) 11/23/17 21:00 - Hospital Course Hospital Course: 2 yo male, with past medical history of essential hypertension, who was found to have new onset atrial fibrillation with acute newly found CHF was sewnt by PMD for evaluation and admission to ER. patient was also found to be hypokalemic.he was admitted in telemetry . cardiology and nephrology were consulted echo showed EF 30 % with systolic dysfunction . Initially started on cardizem drip for rate control and later switched to metoprolol Po . He underwent cardioversion by Dr. Sanchez 11/24 and was converted to SR . At present remains in SR . discussed with cardiology Dr. Sanchez . Patient is cleared for discharge home on Po metoprolol and Eliquis . He continued to be hypokalemic with K 2.8 despite supplementation with KCl runs. Nephrology consult appreciated. At this point is unclear etiology of hypokalemia.Renin , angiotensin and aldosterone were sent Patient started on Kcl 40 MEQ TID . K 4 at present .Will discharge home on Po KCL. Follow up with PMD Dr. Nicholson in 2 days to repeat BMP ( 11/28/17) Prescriptions provided Follow up with Dr. Sanchez in 2 weeks Patient is hemodynamically stable. SR in monitor 1. New onset atrial fibrillation with RVR, now controlled s/p cardioversion . Now back in SR Continue metoprolol and Eliquis lenny discharge Follow up with Dr. Sanchez in 2 weeks 2. New onset systolic CHF Echo performed shows systolic EF of 30-35% Continue metoprolol and losartan , ASa follow upw ith cardiology in 2 weeks 3. Persistent Hypokalemia uncertain etiology, r/o Conn's syndrome, r/o Barter syndrome, r/o Gitelman syndrome, r/o renal tubular acidosis Nephrology consult with Dr. Escobar appreciated sent Angiotensin / renin / aldosterone urine lytes increased KCl 40 MEQ po TID and K at present 4 will d/c home Discharge Exam - Head Exam Head Exam: ATRAUMATIC, NORMAL INSPECTION, NORMOCEPHALIC - Eye Exam Eye Exam: EOMI, Normal appearance, PERRL Pupil Exam: NORMAL ACCOMODATION - ENT Exam ENT Exam: Mucous Membranes Moist, Normal Exam - Neck Exam Neck exam: Full Rom, Normal Inspection - Respiratory Exam Respiratory Exam: Clear to PA & Lateral, NORMAL BREATHING PATTERN. absent: Rales, Rhonchi, Wheezes - Cardiovascular Exam Cardiovascular Exam: REGULAR RHYTHM, RRR, +S1, +S2. absent: JVD - GI/Abdominal Exam GI & Abdominal Exam: Normal Bowel Sounds, Soft. absent: Distended, Guarding, Rebound, Tenderness - Rectal Exam Rectal Exam: Deferred - Extremities Exam Extremities exam: normal capillary refill, normal inspection, pedal pulses present - Back Exam Back exam: NORMAL INSPECTION - Neurological Exam Neurological exam: Alert, CN II-XII Intact, Oriented x3, Reflexes Normal - Psychiatric Exam Psychiatric exam: Normal Affect, Normal Mood - Skin Skin Exam: Dry, Intact, Normal Color, Warm Discharge Plan - Discharge Medications Prescriptions: Apixaban [Eliquis] 5 mg PO Q12H #60 tab Aspirin [Ecotrin] 81 mg PO DAILY #30 tabec Losartan [Cozaar] 50 mg PO DAILY #30 tab Metoprolol Succinate [Toprol XL] 100 mg PO DAILY #30 tab Potassium Chloride [K-Dur 20 mEq ER Tab] 40 meq PO TID #90 tab Spironolactone [Aldactone] 100 mg PO DAILY@1800 #30 tab - Follow Up Plan Condition: STABLE Disposition: HOME/ ROUTINE Patient education suggested?: Yes Instructions: Atrial Fibrillation, Heart Failure, Adult (DC), Hypokalemia (DC) Referrals: Shiv Sanchez MD [Staff Provider] - Darvin Mckay MD [Staff Provider] - Clinical Quality Measures - CQM - Heart Failure Ejection Fraction: Less Than 40 % Left Ventricular Function to be assessed after discharge: Yes Beta-Gianni Prescribed: Metoprolol Succinate Angiotensin II Receptor Gianni Prescribed: Yes Aldosterone Antagonist Prescribed: Yes Follow Up Date (must be within 7 days from discharge): 11/28/17 Follow Up Time: 09:00
[2017-11-25 15:18] LABS: BLOOD UREA NITROGEN 14 mg/dl (9-20); CALCIUM 9.2 mg/dL (8.4-10.2); GFR AFRICAN-AMERICAN > 60; GFR NON-AFRICAN AMERICAN > 60
[2017-11-25 16:10] VITALS: BP 119/84; PULSE 71; TEMP 98.5; O2SAT 97
--- NOTE | 2017-11-26 23:58 | CP.PCM.PN ---
Subjective - Date & Time of Evaluation Date of Evaluation: 11/25/17 Time of Evaluation: 16:00 - Subjective Subjective: In NSR feeling fine Objective - Vital Signs/Intake and Output Vital Signs (last 24 hours): Temp Pulse Resp BP Pulse Ox 98.5 F 71 20 119/84 97 11/25/17 16:08 11/25/17 16:08 11/25/17 16:08 11/25/17 16:08 11/25/17 16:08 - Labs Labs: 11/25/17 05:56 11/25/17 14:45 PT 13.2 Seconds (9.8-13.1) H 11/22/17 14:41 INR 1.2 (0.9-1.2) 11/22/17 14:41 APTT 32.0 Seconds (25.6-37.1) 11/22/17 14:41 - Constitutional Appears: Well - Head Exam Head Exam: ATRAUMATIC, NORMAL INSPECTION, NORMOCEPHALIC - Eye Exam Eye Exam: EOMI, Normal appearance, PERRL Pupil Exam: NORMAL ACCOMODATION, PERRL - ENT Exam ENT Exam: Mucous Membranes Moist, Normal Exam - Neck Exam Neck Exam: Full ROM, Normal Inspection. absent: Lymphadenopathy - Respiratory Exam Respiratory Exam: Clear to Ausculation Bilateral, NORMAL BREATHING PATTERN - Cardiovascular Exam Cardiovascular Exam: REGULAR RHYTHM, +S1, +S2. absent: Murmur - GI/Abdominal Exam GI & Abdominal Exam: Soft, Normal Bowel Sounds. absent: Tenderness - Extremities Exam Extremities Exam: Full ROM, Normal Capillary Refill, Normal Inspection. absent : Joint Swelling, Pedal Edema - Back Exam Back Exam: NORMAL INSPECTION - Neurological Exam Neurological Exam: Alert, Awake, CN II-XII Intact, Normal Gait, Oriented x3 - Psychiatric Exam Psychiatric exam: Normal Affect, Normal Mood - Skin Skin Exam: Dry, Intact, Normal Color, Warm Assessment and Plan (1) A-fib Assessment & Plan: cont eliquis 5mg po bid cont bb Status: Acute (2) CHF (congestive heart failure) Assessment & Plan: outpt ischemic w/u c cont bb and arb Status: Acute
[2017-11-30 19:39] LABS: ALDO/PRA RATIO 9.1 Ratio (0.9-28.9)
== END 2017-11-25 18:10 | disposition home or self-care (01) | DRG 308 ==
LOC: H.ER 11:28 → H.ERHOLD 15:49 → H.TEL 18:12 → OBSVTOIN 11-24 19:44
PROVIDERS: ADMIT Internal Medicine; ATTEND Internal Medicine
PROC: 5A2204Z Restoration of Cardiac Rhythm, Single (ICD-10-PCS; principal; 2017-11-24)
PROC: B246ZZ4 Ultrasonography of Right and Left Heart, Transesophageal (ICD-10-PCS; 2017-11-24)
DX: I48.91 Unspecified atrial fibrillation (principal); I50.21 Acute systolic (congestive) heart failure; E87.0 Hyperosmolality and hypernatremia; E87.3 Alkalosis; I11.0 Hypertensive heart disease with heart failure; E87.6 Hypokalemia; E78.1 Pure hyperglyceridemia; F17.200 Nicotine dependence, unspecified, uncomplicated; Z79.82 Long term (current) use of aspirin